=== PATIENT | female | born 1975 | race Asian ===

== ENCOUNTER → 2019-11-23 | Outpatient (CLI) | payer BC ==
[~2019-11-23] VITALS: Ht 30.5 cm; Wt 59.4 kg
[~2019-11-23] MED LIST: ALPR0.255 PO; CYANOCOBALAMIN (B-12) 1000 MCG/1 ML VIAL IM ONE; CYANOCOBALAMIN (B-12) 1000 MCG/1 ML VIAL ONE; DIGO0.25 PO; DIGOXIN (250MCG/ML) 2 ML AMPULE IV ONE; DIGOXIN (250MCG/ML) 2 ML AMPULE ONE; DILT-14 PO; FERR325T20 PO; GLYB5TAB8 PO; METF-372 PO; SODIUM CHLORIDE 0.9% 500 ML IV ONE; WARF4TAB33 PO; dilTIAZem 25 MG/5 ML VIAL IV ONE
[2019-11-23 16:25] VITALS: BP 128/78
--- NOTE | 2019-11-23 16:25 | NUR ---
Patient in clinic from MD callahan, AAOx4, ambulatory, breathing even and unlabored, patient fatigued. Dr Roman gave verbal orders as entered, patient into see Dr Roman regarding dizziness and fatigue, patient has nosebleeds and take coumadin for valve replacement.
--- NOTE | 2019-11-23 16:30 | NUR ---
IV insertion IV access obtained by David MARROQUIN, via clean sterile technique by inserting 20 gauge catheter at [facility] after 1 attempt(s). IV secured properly. No trauma to site. Patient tolerated procedure well. Blood drawn during IV start and sent to lab for STAT order.
--- NOTE | 2019-11-23 16:35 | NUR ---
Patient placed on cardiac defib monitor. IV fluids started.
--- NOTE | 2019-11-23 16:42 | NUR ---
Digoxin given as entered in eMAR by David MARROQUIN.
--- NOTE | 2019-11-23 16:47 | NUR ---
Digoxin push finished.
--- NOTE | 2019-11-23 16:50 | NUR ---
Cardizem IVP admin by David MARROQUIN as documented in eMAR.
--- NOTE | 2019-11-23 16:54 | NUR ---
Cardimiladym push finished.
--- NOTE | 2019-11-23 16:55 | NUR ---
Strip from monitor placed in pt chart.
[2019-11-23 17:04] LABS: Basophils # (auto) 0.1 10 ^3/uL (0-0.2); Basophils % (auto) 0.9 % (0.0-2.0); Eosinophils # (auto) 0.1 10 ^3/uL (0-0.8); Lymphocytes # (auto) 1.2 10 ^3/uL (0.4-5.4); Mean Corpuscular Hemoglobin 25.4 pg (28.0-32.0); Monocytes # (auto) 0.6 10 ^3/uL (0-1.3); Neutrophils # (auto) 4.3 10 ^3/uL (1.6-8.6); Nucleated Red Blood Cells % 0.1 %; White Blood Cell 6.3 10^3/uL (4.4-10.8)
[2019-11-23 17:06] LABS: Eosinophils % (auto) 1.3 % (0.0-7.0); Hematocrit 27.2 % (36.0-46.0); Hemoglobin 8.5 g/dL (12.2-16.2); Lymphocytes % (auto) 18.9 % (10.0-50.0); Mean Corpuscular Hgb Conc. 31.4 g/dL (32.0-36.0); Mean Corpuscular Volume 81.1 fL (80.0-100.0); Monocytes % (auto) 9.9 % (0.0-12.0); Platelet Count (auto) 290 10^3/uL (140-450); Red Blood Cells 3.36 10^6/uL (4.0-5.20); Red Cell Distribution Width 18.3 % (11.8-14.3)
[2019-11-23 17:19] LABS: Albumin 3.8 g/dL (3.4-5.0); Calcium 9.3 mg/dL (8.5-10.1); Magnesium 1.9 mg/dL (1.6-2.6); Potassium 4.4 mmol/L (3.5-5.1)
[2019-11-23 17:22] LABS: Bilirubin, Total 0.4 mg/dL (0.2-1.0); Total Protein 7.9 g/dL (6.4-8.2)
--- NOTE | 2019-11-23 17:30 | NUR ---
Patient heart rate decreased to 105-110 in Afib/Aflutter, Dr Roman notified.
--- NOTE | 2019-11-23 17:35 | NUR ---
Dr Roman at chairside talking with patient about new medications and diagnosis of Afib, new directions on Coumadin dose 4mg daily except Wednesday and Wednesday starting on Wednesday. Patient verbalized understanding.
--- NOTE | 2019-11-23 18:00 | NUR ---
B12 IM L deltoid admin by David MARROQUIN. Iron boost spray, with directions on how often to take, given to patient.
[2019-11-23 18:15] VITALS: BP 105/75
--- NOTE | 2019-11-23 18:15 | NUR ---
Discharge Instructions See e-MAR for any mediations given with this visit. Patient education given on disease process. Patient verbalized understanding. Previous labs reviewed. Patient discharged in stable condition with after care instructions and follow up appointment. Note Patient given triplicate prescription and David RN called in medications to patient preferred pharmacy. Patient has follow up appt on Wednesday with Dr Roman. Patient understands to go to the ER if her symptoms return or worsen.
--- NOTE | 2019-12-06 11:13 | NUR ---
11/23/19 1810 Late Entry IV NS Bolus completed. IV removal IV DC'd with sterile technique, catheter fully intact. Pressure dressing applied to site. Patient tolerated procedure well.
== END | disposition home or self-care (01) ==
LOC: CHF HDHVI 16:28
PROVIDERS: ATTEND Internal Medicine
DX: D64.9 Anemia, unspecified (principal); R55 Syncope and collapse; R04.0 Epistaxis; I48.91 Unspecified atrial fibrillation; I10 Essential (primary) hypertension; E11.9 Type 2 diabetes mellitus without complications; Z79.01 Long term (current) use of anticoagulants; Z79.84 Long term (current) use of oral hypoglycemic drugs; Z79.899 Other long term (current) drug therapy; Z95.2 Presence of prosthetic heart valve
CPT/HCPCS: 36415; 80053; 83036; 83735; 84443; 85025; 93005; 96361; 96372; 96374; 96375; G0463; J1160; J3420; J7040

== ENCOUNTER 2019-11-28 16:33 | Inpatient (IN) | payer BC ==
[2019-11-28] VITALS (7 sets, daily range): BP systolic 97–127; BP diastolic 63–89
[~2019-11-28] VITALS: Ht 152.4 cm; Wt 62.5 kg
[2019-11-28] MEDS ORDERED: dilTIAZem 25 MG/5 ML VIAL IV PRN (17:30)
[2019-11-28] MEDS ORDERED: DEXTROSE (50%) 50ML SYRG IV PRN (17:30)
[2019-11-28] MEDS ORDERED: AMIODARONE HCL 150 MG in D5W 5% 100 ML IV ONE (17:30)
[2019-11-28] MEDS ORDERED: ALPRAZolam 0.25 MG TAB PO PRN (17:30)
[2019-11-28] MEDS ORDERED: AMIODARONE 450mg/250ml AE 250 ML IV SCH (17:31)
[2019-11-28] MEDS ORDERED: GLYB5TAB8 PO (17:48)
[2019-11-28] MEDS ORDERED: DIGO0.25 PO (17:48)
[2019-11-28] MEDS ORDERED: METF-372 PO (17:48)
[2019-11-28] MEDS ORDERED: FERR325T20 PO (17:48)
[2019-11-28] MEDS ORDERED: ALPR0.255 PO (17:48)
[2019-11-28] MEDS ORDERED: WARF4TAB33 PO (17:48)
[2019-11-28] MEDS ORDERED: DILT-14 PO (17:48)
[2019-11-28] MEDS: SOD CHL 0.45% 1,000 ML IV SCH (18:49)
[2019-11-28 19:50] LABS: Basophils # (auto) 0.1 10 ^3/uL (0-0.2); Eosinophils # (auto) 0.1 10 ^3/uL (0-0.8); Mean Corpuscular Hgb Conc. 31.2 g/dL (32.0-36.0); Neutrophils # (auto) 3.6 10 ^3/uL (1.6-8.6); White Blood Cell 5.9 10^3/uL (4.4-10.8)
[2019-11-28 19:52] LABS: Basophils % (auto) 1.3 % (0.0-2.0); Eosinophils % (auto) 2.5 % (0.0-7.0); Hematocrit 20.3 % (36.0-46.0); Lymphocytes # (auto) 1.6 10 ^3/uL (0.4-5.4); Lymphocytes % (auto) 26.8 % (10.0-50.0); Mean Corpuscular Volume 83.2 fL (80.0-100.0); Monocytes # (auto) 0.5 10 ^3/uL (0-1.3); Monocytes % (auto) 9.1 % (0.0-12.0); Neutrophils % (auto) 60.3 % (37.0-80.0); Nucleated Red Blood Cells % 0.5 %; Platelet Count (auto) 349 10^3/uL (140-450); Red Blood Cells 2.44 10^6/uL (4.0-5.20); Red Cell Distribution Width 18.2 % (11.8-14.3)
[2019-11-28 19:59] LABS: Hemoglobin 6.3 g/dL (12.2-16.2)
[2019-11-28 20:07] LABS: Albumin 3.1 g/dL (3.4-5.0); Calcium 8.7 mg/dL (8.5-10.1); Potassium 4.7 mmol/L (3.5-5.1)
[2019-11-28 20:14] LABS: BUN/Creatinine Ratio 23.3; Bilirubin, Total 0.4 mg/dL (0.2-1.0); Total Protein 6.6 g/dL (6.4-8.2)
[2019-11-28 20:15] LABS: Free T4 (Free Thyroxine) 1.52 ng/dL (0.89-1.76); T3 Total 1.21 ng/mL (0.60-1.81)
[2019-11-28 20:25] LABS: INR 6.6 (0.9-1.15)
[2019-11-28] MEDS: ACCU-CHEK COMFORT CURVE STRIP VI SCH (21:52)
[2019-11-28] MEDS: InsuLIN REG 1unit/0.01ml Soln (100units/ml) SC SCH (21:57)
[2019-11-29] VITALS (12 sets, daily range): BP systolic 116–139; BP diastolic 66–82
[2019-11-29] MEDS: AMIODARONE 450mg/250ml AE 250 ML IV SCH ×3 (02:37→18:25)
[2019-11-29] MEDS: SOD CHL 0.45% 1,000 ML IV SCH ×2 (06:16→20:10)
[2019-11-29] MEDS: ACCU-CHEK COMFORT CURVE STRIP VI SCH ×4 (06:16→21:32)
[2019-11-29] MEDS: InsuLIN REG 1unit/0.01ml Soln (100units/ml) SC SCH ×4 (06:18→21:32)
[2019-11-29 06:39] LABS: Basophils # (auto) 0.1 10 ^3/uL (0-0.2); Eosinophils # (auto) 0.2 10 ^3/uL (0-0.8); Eosinophils % (auto) 3.1 % (0.0-7.0); Hematocrit 27.6 % (36.0-46.0); Hemoglobin 9.4 g/dL (12.2-16.2); Lymphocytes # (auto) 1.2 10 ^3/uL (0.4-5.4); Lymphocytes % (auto) 16.1 % (10.0-50.0); Mean Corpuscular Hemoglobin 28.5 pg (28.0-32.0); Mean Corpuscular Hgb Conc. 33.9 g/dL (32.0-36.0); Mean Corpuscular Volume 84.2 fL (80.0-100.0); Monocytes # (auto) 0.8 10 ^3/uL (0-1.3); Neutrophils % (auto) 68.8 % (37.0-80.0); Platelet Count (auto) 309 10^3/uL (140-450); Red Blood Cells 3.28 10^6/uL (4.0-5.20); Red Cell Distribution Width 16.7 % (11.8-14.3); White Blood Cell 7.2 10^3/uL (4.4-10.8)
[2019-11-29 07:01] LABS: Partial Thromboplastin Time 45.8 sec (23.0-31.2)
[2019-11-29 07:34] LABS: INR 4.9 (0.9-1.15)
[2019-11-29] MEDS ORDERED: CALCIUM CARB 500 MG CHEW TAB PO PRN (08:15)
[2019-11-29] MEDS ORDERED: PANTOPRAZOLE 40 MG TAB PO SCH (10:00)
[2019-11-29] MEDS ORDERED: DIGOXIN 0.25 MG TAB PO SCH (10:00)
[2019-11-29] MEDS ORDERED: PANTOPRAZOLE 40 MG/10 ML VIAL INJ IV SCH (10:00)
[2019-11-29] MEDS ORDERED: ALPRAZolam 0.25 MG TAB PO PRN (10:45)
[2019-11-29] MEDS ORDERED: FERROUS SULFATE 325 MG TAB PO ONE (11:00)
[2019-11-29] MEDS: SALINE 0.65 % NASAL SPRAY 45ML BOTTLE EACHNOSTRI SCH ×3 (11:37→21:29)
[2019-11-29 12:27] LABS: Urine Bacteria MOD /hpf (None Seen); Urine Blood 1+ /uL (Negative); Urine Specific Gravity 1.007 (1.001-1.035); Urine WBC 40 /hpf (0 - 5)
[2019-11-29] MEDS ORDERED: WARFARIN SODIUM 5 MG TAB PO SCH (17:00)
[2019-11-29] MEDS: FERROUS SULFATE 325 MG TAB PO SCH (17:41)
[2019-11-29] MEDS: AMIODARONE HCL 200 MG TAB PO SCH (21:29)
[2019-11-30 05:00] VITALS: BP 120/68
[2019-11-30] MEDS: InsuLIN REG 1unit/0.01ml Soln (100units/ml) SC SCH ×2 (06:22→12:10)
[2019-11-30] MEDS: SALINE 0.65 % NASAL SPRAY 45ML BOTTLE EACHNOSTRI SCH ×2 (06:22→12:08)
[2019-11-30] MEDS: ACCU-CHEK COMFORT CURVE STRIP VI SCH ×2 (06:22→12:08)
[2019-11-30 06:25] LABS: Potassium 3.9 mmol/L (3.5-5.1)
[2019-11-30 06:26] LABS: INR 2.26 (0.9-1.15); Partial Thromboplastin Time 35.4 sec (23.0-31.2)
[2019-11-30 06:29] LABS: Basophils # (auto) 0.1 10 ^3/uL (0-0.2); Basophils % (auto) 0.8 % (0.0-2.0); Eosinophils # (auto) 0.2 10 ^3/uL (0-0.8); Eosinophils % (auto) 2.8 % (0.0-7.0); Hematocrit 27.1 % (36.0-46.0); Hemoglobin 8.9 g/dL (12.2-16.2); Lymphocytes # (auto) 1.3 10 ^3/uL (0.4-5.4); Lymphocytes % (auto) 17.8 % (10.0-50.0); Mean Corpuscular Hemoglobin 27.9 pg (28.0-32.0); Mean Corpuscular Volume 84.6 fL (80.0-100.0); Monocytes # (auto) 0.8 10 ^3/uL (0-1.3); Monocytes % (auto) 11.1 % (0.0-12.0); Neutrophils # (auto) 4.9 10 ^3/uL (1.6-8.6); Neutrophils % (auto) 67.5 % (37.0-80.0); Nucleated Red Blood Cells % 0.3 %; Platelet Count (auto) 311 10^3/uL (140-450); Red Cell Distribution Width 17.3 % (11.8-14.3); White Blood Cell 7.3 10^3/uL (4.4-10.8)
[2019-11-30 06:31] LABS: Calcium 8.6 mg/dL (8.5-10.1)
[2019-11-30 09:00] VITALS: BP 133/66
[2019-11-30] MEDS: FERROUS SULFATE 325 MG TAB PO SCH (09:07)
[2019-11-30] MEDS: SOD CHL 0.45% 1,000 ML IV SCH (09:08)
[2019-11-30] MEDS: AMIODARONE HCL 200 MG TAB PO SCH (09:08)
[2019-11-30] MEDS ORDERED: DIGOXIN 0.125 MG TAB PO SCH (10:00)
[2019-11-30] MEDS ORDERED: PANTOPRAZOLE 40 MG TAB PO SCH (10:00)
[2019-11-30] MEDS ORDERED: cefTRIAXone 1GM/50ML D5W 50 ML IV ONE (10:00)
[2019-11-30 12:37] VITALS: BP 155/77
[2019-11-30 12:51] VITALS: BP_SYST 15; BP_SYST 155; BP_DIAS 77
[2019-11-30 14:00] VITALS: BP 131/60
[2019-11-30] MEDS ORDERED: WARFARIN SODIUM 2.5 MG TAB PO ONE (17:00)
== END 2019-11-30 14:20 | disposition home or self-care (01) | DRG 309 ==
LOC: TELE-CENTR 17:06
PROVIDERS: ADMIT Internal Medicine; ATTEND Internal Medicine
PROC: 30233N1 Transfusion of Nonautologous Red Blood Cells into Peripheral Vein, Percutaneous Approach (ICD-10-PCS; principal; 2019-11-28)
DX: I48.91 Unspecified atrial fibrillation (principal); D68.69 Other thrombophilia; N39.0 Urinary tract infection, site not specified; D64.9 Anemia, unspecified; E11.9 Type 2 diabetes mellitus without complications; R04.0 Epistaxis; I00 Rheumatic fever without heart involvement; H53.9 Unspecified visual disturbance; I10 Essential (primary) hypertension; I09.1 Rheumatic diseases of endocardium, valve unspecified; Z79.01 Long term (current) use of anticoagulants; Z79.899 Other long term (current) drug therapy; Z95.2 Presence of prosthetic heart valve; Z95.4 Presence of other heart-valve replacement; Z79.84 Long term (current) use of oral hypoglycemic drugs
CPT/HCPCS: 36415; 71045; 76536; 80048; 80053; 81001; 82962; 83036; 84439; 84443; 84480; 85025; 85610; 85730; 86850; 86900; 86901; 86920; 93306; C9113; G0378; J0696; J1815; J7060

== ENCOUNTER → 2019-12-05 | Outpatient (CLI) | payer BC ==
[~2019-12-05] MED LIST changes: -CYANOCOBALAMIN (B-12) 1000 MCG/1 ML VIAL IM ONE; -CYANOCOBALAMIN (B-12) 1000 MCG/1 ML VIAL ONE; -DIGOXIN (250MCG/ML) 2 ML AMPULE IV ONE; -DIGOXIN (250MCG/ML) 2 ML AMPULE ONE; -SODIUM CHLORIDE 0.9% 500 ML IV ONE; -dilTIAZem 25 MG/5 ML VIAL IV ONE
[2019-12-05 15:59] LABS: Basophils # (auto) 0.1 10 ^3/uL (0-0.2); Basophils % (auto) 1.2 % (0.0-2.0); Eosinophils # (auto) 0.2 10 ^3/uL (0-0.8); Eosinophils % (auto) 3.7 % (0.0-7.0); Hematocrit 32.5 % (36.0-46.0); Hemoglobin 10.2 g/dL (12.2-16.2); Lymphocytes # (auto) 0.8 10 ^3/uL (0.4-5.4); Mean Corpuscular Hemoglobin 27.4 pg (28.0-32.0); Mean Corpuscular Hgb Conc. 31.6 g/dL (32.0-36.0); Monocytes # (auto) 0.5 10 ^3/uL (0-1.3); Monocytes % (auto) 7.8 % (0.0-12.0); Neutrophils % (auto) 75.3 % (37.0-80.0); Platelet Count (auto) 378 10^3/uL (140-450); Red Blood Cells 3.73 10^6/uL (4.0-5.20); Red Cell Distribution Width 17.4 % (11.8-14.3); White Blood Cell 6.6 10^3/uL (4.4-10.8)
[2019-12-05 16:03] LABS: Albumin 3.4 g/dL (3.4-5.0); BUN/Creatinine Ratio 12.9; Potassium 4.6 mmol/L (3.5-5.1)
[2019-12-05 16:06] LABS: Bilirubin, Total 0.3 mg/dL (0.2-1.0); Total Protein 7.1 g/dL (6.4-8.2)
== END | disposition home or self-care (01) ==
LOC: LAB 11:43
PROVIDERS: ATTEND Internal Medicine
DX: I10 Essential (primary) hypertension (principal); R79.1 Abnormal coagulation profile; D64.9 Anemia, unspecified; E11.9 Type 2 diabetes mellitus without complications
CPT/HCPCS: 36415; 80053; 83036; 85025; 85610

== ENCOUNTER → 2019-12-11 | Outpatient (CLI) | payer BC ==
[2019-12-11 10:27] LABS: Basophils # (auto) 0.1 10 ^3/uL (0-0.2); Basophils % (auto) 2.2 % (0.0-2.0); Eosinophils # (auto) 0.2 10 ^3/uL (0-0.8); Eosinophils % (auto) 3.3 % (0.0-7.0); Hematocrit 35.2 % (36.0-46.0); Hemoglobin 11.3 g/dL (12.2-16.2); Lymphocytes # (auto) 1.3 10 ^3/uL (0.4-5.4); Mean Corpuscular Hgb Conc. 32.2 g/dL (32.0-36.0); Mean Corpuscular Volume 83.9 fL (80.0-100.0); Monocytes # (auto) 0.5 10 ^3/uL (0-1.3); Monocytes % (auto) 7.5 % (0.0-12.0); Neutrophils # (auto) 4.6 10 ^3/uL (1.6-8.6); Nucleated Red Blood Cells % 0.1 %; Platelet Count (auto) 353 10^3/uL (140-450); White Blood Cell 6.8 10^3/uL (4.4-10.8)
[2019-12-11 10:28] LABS: Urine Bacteria NONE SEEN /hpf (None Seen); Urine Blood 1+ /uL (Negative); Urine Specific Gravity 1.012 (1.001-1.035); Urine WBC 2 /hpf (0 - 5)
== END | disposition home or self-care (01) ==
LOC: LAB 09:59
PROVIDERS: ATTEND Internal Medicine
DX: I10 Essential (primary) hypertension (principal); E11.9 Type 2 diabetes mellitus without complications; D64.9 Anemia, unspecified
CPT/HCPCS: 36415; 81001; 82043; 85025; 85045

== ENCOUNTER → 2019-12-12 | Outpatient (CLI) | payer BC ==
[2019-12-12 12:18] LABS: INR 3.48 (0.9-1.15); Partial Thromboplastin Time 44.1 sec (23.0-31.2)
== END | disposition home or self-care (01) ==
LOC: LAB 09:14
PROVIDERS: ATTEND Internal Medicine
DX: R79.1 Abnormal coagulation profile (principal)
CPT/HCPCS: 36415; 85610; 85730

== ENCOUNTER → 2019-12-26 | Outpatient (CLI) | payer BC | END | disposition home or self-care (01) | LOC: LAB 09:47 | PROVIDERS: ATTEND Internal Medicine | DX: I10 Essential (primary) hypertension (principal); D64.9 Anemia, unspecified; E11.9 Type 2 diabetes mellitus without complications | CPT/HCPCS: 82270 ==

== ENCOUNTER → 2020-01-01 | Outpatient (CLI) | payer BC | END | disposition home or self-care (01) | LOC: LAB 10:33 | PROVIDERS: ATTEND Internal Medicine | DX: I47.1 Supraventricular tachycardia (principal) | CPT/HCPCS: 36415; 84443 ==

== ENCOUNTER → 2020-01-23 | Outpatient (CLI) | payer BC ==
[2020-01-23 10:06] LABS: Basophils # (auto) 0.1 10 ^3/uL (0-0.2); Basophils % (auto) 2.3 % (0.0-2.0); Eosinophils # (auto) 0.3 10 ^3/uL (0-0.8); Eosinophils % (auto) 7.4 % (0.0-7.0); Hematocrit 36.7 % (36.0-46.0); Hemoglobin 12.1 g/dL (12.2-16.2); Lymphocytes # (auto) 1.1 10 ^3/uL (0.4-5.4); Lymphocytes % (auto) 26.7 % (10.0-50.0); Mean Corpuscular Hemoglobin 27.6 pg (28.0-32.0); Mean Corpuscular Hgb Conc. 32.9 g/dL (32.0-36.0); Mean Corpuscular Volume 83.8 fL (80.0-100.0); Monocytes # (auto) 0.3 10 ^3/uL (0-1.3); Monocytes % (auto) 8.8 % (0.0-12.0); Neutrophils # (auto) 2.2 10 ^3/uL (1.6-8.6); Neutrophils % (auto) 54.8 % (37.0-80.0); Nucleated Red Blood Cells % 0.1 %; Platelet Count (auto) 229 10^3/uL (140-450); Red Blood Cells 4.38 10^6/uL (4.0-5.20); Red Cell Distribution Width 17.6 % (11.8-14.3)
[2020-01-23 10:33] LABS: BUN/Creatinine Ratio 22.5; Calcium 8.9 mg/dL (8.5-10.1); Potassium 4.3 mmol/L (3.5-5.1)
== END | disposition home or self-care (01) ==
LOC: LAB 09:34
PROVIDERS: ATTEND Internal Medicine
DX: I10 Essential (primary) hypertension (principal); D64.9 Anemia, unspecified
CPT/HCPCS: 36415; 80048; 83036; 85025

== ENCOUNTER → 2020-03-12 | Outpatient (CLI) | payer BC ==
[2020-03-12 10:35] LABS: Potassium 4.8 mmol/L (3.5-5.1)
[2020-03-12 10:38] LABS: BUN/Creatinine Ratio 23.4; Calcium 8.8 mg/dL (8.5-10.1)
== END | disposition home or self-care (01) ==
LOC: LAB 09:20
PROVIDERS: ATTEND Internal Medicine
DX: E11.9 Type 2 diabetes mellitus without complications (principal); D64.9 Anemia, unspecified
CPT/HCPCS: 36415; 80048

== ENCOUNTER 2020-08-06 10:45 | Emergency (ER) | payer BC ==
[~2020-08-06] VITALS: Ht 152.4 cm; Wt 63.5 kg
[2020-08-06 10:50] VITALS: BP 188/83
[2020-08-06 11:19] LABS: Basophils # (auto) 0.1 10 ^3/uL (0-0.2); Basophils % (auto) 1.3 % (0.0-2.0); Eosinophils # (auto) 0.2 10 ^3/uL (0-0.8); Eosinophils % (auto) 3.5 % (0.0-7.0); Hematocrit 34.7 % (36.0-46.0); Hemoglobin 11.6 g/dL (12.2-16.2); Lymphocytes # (auto) 1.4 10 ^3/uL (0.4-5.4); Lymphocytes % (auto) 20.5 % (10.0-50.0); Mean Corpuscular Hemoglobin 28.9 pg (28.0-32.0); Mean Corpuscular Hgb Conc. 33.5 g/dL (32.0-36.0); Mean Corpuscular Volume 86.3 fL (80.0-100.0); Monocytes # (auto) 0.4 10 ^3/uL (0-1.3); Monocytes % (auto) 6.1 % (0.0-12.0); Neutrophils # (auto) 4.6 10 ^3/uL (1.6-8.6); Neutrophils % (auto) 68.6 % (37.0-80.0); Nucleated Red Blood Cells % 0.1 %; Platelet Count (auto) 281 10^3/uL (140-450); Red Blood Cells 4.02 10^6/uL (4.0-5.20); Red Cell Distribution Width 15.5 % (11.8-14.3); White Blood Cell 6.7 10^3/uL (4.4-10.8)
[2020-08-06 11:39] LABS: INR 3.5 (0.9-1.15); Partial Thromboplastin Time 49.1 sec (23.0-31.2)
== END 2020-08-06 13:17 | disposition home or self-care (01) ==
LOC: ER 10:45
DX: R04.0 Epistaxis (principal); I25.10 Atherosclerotic heart disease of native coronary artery without angina pectoris; E11.9 Type 2 diabetes mellitus without complications; I10 Essential (primary) hypertension; Z79.01 Long term (current) use of anticoagulants; Z79.899 Other long term (current) drug therapy
CPT/HCPCS: 36415; 85025; 85610; 85730

== ENCOUNTER 2020-09-12 18:40 | Inpatient (IN) | payer BC ==
[~2020-09-12] VITALS: Ht 152.4 cm; Wt 63.5 kg
[2020-09-12 19:33] LABS: Basophils # (auto) 0.1 10 ^3/uL (0-0.2); Basophils % (auto) 2.5 % (0.0-2.0); Eosinophils # (auto) 0.4 10 ^3/uL (0-0.8); Eosinophils % (auto) 7.2 % (0.0-7.0); Hemoglobin 10.7 g/dL (12.2-16.2); Lymphocytes # (auto) 1.2 10 ^3/uL (0.4-5.4); Lymphocytes % (auto) 24.5 % (10.0-50.0); Mean Corpuscular Hemoglobin 30.1 pg (28.0-32.0); Mean Corpuscular Hgb Conc. 34.4 g/dL (32.0-36.0); Mean Corpuscular Volume 87.6 fL (80.0-100.0); Monocytes # (auto) 0.5 10 ^3/uL (0-1.3); Monocytes % (auto) 9.8 % (0.0-12.0); Neutrophils # (auto) 2.8 10 ^3/uL (1.6-8.6); Red Blood Cells 3.54 10^6/uL (4.0-5.20); Red Cell Distribution Width 14.5 % (11.8-14.3); White Blood Cell 4.9 10^3/uL (4.4-10.8)
[2020-09-12 19:49] LABS: Albumin 3.3 g/dL (3.4-5.0); Anion Gap 4 (5-15); Blood Urea Nitrogen 22 mg/dL (7-18); Calcium 8.4 mg/dL (8.5-10.1); Carbon Dioxide 26 mmol/L (21-32); Chloride 112 mmol/L (98-107); Glucose 272 mg/dL (74-106); Sodium 142 mmol/L (136-145)
[2020-09-12 19:56] LABS: Alanine Aminotransferase 49 U/L (13-56); Alkaline Phosphatase 60 U/L (45-117); Aspartate Aminotransferase 30 U/L (15-37); BUN/Creatinine Ratio 19.8; Bilirubin, Total 0.2 mg/dL (0.2-1.0); GFR African American 69 mL/min; GFR Non-African American 57 mL/min; Total Protein 6.7 g/dL (6.4-8.2)
[2020-09-12] MEDS ORDERED: cloNIDine HCL 0.1 MG TAB PO ONE (20:15)
[2020-09-12] MEDS ORDERED: ONDANSETRON HCL 4 MG/2 ML VIAL IV PRN (23:00)
[2020-09-12] MEDS ORDERED: MORPHINE SULFATE 4 MG/ML SYR/VIAL IV PRN (23:00)
[2020-09-12] MEDS ORDERED: MORPHINE SULF INJ 2 MG/ML SYRINGE 1ML IV PRN (23:00)
[2020-09-12] MEDS ORDERED: DOCUSATE SOD 100 MG CAP PO PRN (23:00)
[2020-09-12] MEDS ORDERED: DEXTROSE (50%) 50ML SYRG IV PRN (23:00)
[2020-09-12] MEDS ORDERED: NITROGLYCERIN 0.4 MG SL TAB SL PRN (23:00)
[2020-09-12] MEDS ORDERED: HYDROcodone-ACET 5/325MG TAB PO PRN (23:00)
[2020-09-13] VITALS (7 sets, daily range): BP systolic 124–172; BP diastolic 53–82
[2020-09-13] MEDS: SODIUM CHLOR 0.9% PF (SALINE LOCK) 10ML VIAL/SYR IV SCH ×3 (05:02→21:45)
[2020-09-13] MEDS: hydrALAZINE HCL 20 MG/ML VL IV PRN ×2 (05:02→17:48)
[2020-09-13] MEDS: InsuLIN REG 1unit/0.01ml Soln (100units/ml) SC SCH ×4 (06:37→22:07)
[2020-09-13] MEDS: ACCU-CHEK COMFORT CURVE STRIP VI SCH ×4 (06:37→21:44)
[2020-09-13 07:49] LABS: Basophils # (auto) 0.1 10 ^3/uL (0-0.2); Basophils % (auto) 1.3 % (0.0-2.0); Eosinophils # (auto) 0.3 10 ^3/uL (0-0.8); Hematocrit 31.7 % (36.0-46.0); Hemoglobin 10.8 g/dL (12.2-16.2); Lymphocytes % (auto) 18.8 % (10.0-50.0); Mean Corpuscular Hemoglobin 29.8 pg (28.0-32.0); Mean Corpuscular Hgb Conc. 34.2 g/dL (32.0-36.0); Monocytes # (auto) 0.4 10 ^3/uL (0-1.3); Neutrophils # (auto) 3.7 10 ^3/uL (1.6-8.6); Neutrophils % (auto) 66.9 % (37.0-80.0); Nucleated Red Blood Cells % 0.1 %; Red Blood Cells 3.64 10^6/uL (4.0-5.20); Red Cell Distribution Width 14.9 % (11.8-14.3); White Blood Cell 5.6 10^3/uL (4.4-10.8)
[2020-09-13 08:03] LABS: Calcium 8.7 mg/dL (8.5-10.1); Potassium 4.6 mmol/L (3.5-5.1)
[2020-09-13 08:08] LABS: Bilirubin, Total 0.3 mg/dL (0.2-1.0); Total Protein 6.5 g/dL (6.4-8.2)
[2020-09-13] MEDS: FAMOTIDINE 20 MG TAB PO SCH ×2 (09:58→21:51)
[2020-09-13] MEDS: ZINC SULFATE 220mg CAP or TAB PO SCH (09:58)
[2020-09-13] MEDS: amLODIPine BESYLATE 5 MG TAB PO SCH (09:59)
[2020-09-13] MEDS ORDERED: ENOXAPARIN SOD 40 MG/0.4 ML SYRINGE SC SCH (10:00)
[2020-09-13] MEDS ORDERED: ASCORBIC ACID 500 MG TAB PO SCH (10:00)
[2020-09-13 12:37] LABS: INR 2.56 (0.9-1.15); Partial Thromboplastin Time 50.4 sec (23.0-31.2)
[2020-09-13] MEDS: ACETAMINOPHEN 325 MG TAB PO PRN (13:41)
[2020-09-13 14:28] LABS: Urine Bacteria NONE SEEN /hpf (None Seen); Urine Blood 1+ /uL (Negative); Urine Specific Gravity 1.011 (1.001-1.035); Urine WBC 3 /hpf (0 - 5)
[2020-09-13] MEDS ORDERED: WARFARIN SODIUM 1 MG TAB PO ONE (17:00)
[2020-09-13] MEDS ORDERED: LORazepam 2MG/ML-1ML VIAL IV PRN (20:45)
[2020-09-14] MEDS ORDERED: WARF4TAB33 PO (00:04)
[2020-09-14] MEDS ORDERED: GLYB5TAB8 PO (00:04)
[2020-09-14] MEDS ORDERED: POM PO (00:10)
[2020-09-14] MEDS ORDERED: MET50T PO (00:10)
[2020-09-14] MEDS ORDERED: AMIO200T33 PO (00:10)
[2020-09-14] MEDS ORDERED: ATO40T PO (00:10)
[2020-09-14] MEDS ORDERED: LISI2.5T47 PO (00:10)
[2020-09-14 05:00] VITALS: BP 135/65
[2020-09-14] MEDS: ACCU-CHEK COMFORT CURVE STRIP VI SCH ×4 (06:10→22:10)
[2020-09-14] MEDS: SODIUM CHLOR 0.9% PF (SALINE LOCK) 10ML VIAL/SYR IV SCH ×3 (06:10→22:10)
[2020-09-14 06:34] LABS: Basophils # (auto) 0.1 10 ^3/uL (0-0.2); Basophils % (auto) 1.4 % (0.0-2.0); Eosinophils # (auto) 0.4 10 ^3/uL (0-0.8); Eosinophils % (auto) 6.6 % (0.0-7.0); Hematocrit 34.6 % (36.0-46.0); Hemoglobin 11.9 g/dL (12.2-16.2); Lymphocytes # (auto) 1.1 10 ^3/uL (0.4-5.4); Lymphocytes % (auto) 17.4 % (10.0-50.0); Mean Corpuscular Hgb Conc. 34.3 g/dL (32.0-36.0); Mean Corpuscular Volume 87.5 fL (80.0-100.0); Monocytes # (auto) 0.4 10 ^3/uL (0-1.3); Monocytes % (auto) 7.2 % (0.0-12.0); Neutrophils # (auto) 4.1 10 ^3/uL (1.6-8.6); Neutrophils % (auto) 67.4 % (37.0-80.0); Nucleated Red Blood Cells % 0.1 %; Red Blood Cells 3.96 10^6/uL (4.0-5.20); Red Cell Distribution Width 14.7 % (11.8-14.3); White Blood Cell 6.1 10^3/uL (4.4-10.8)
[2020-09-14] MEDS: InsuLIN REG 1unit/0.01ml Soln (100units/ml) SC SCH ×4 (06:37→22:14)
[2020-09-14] MEDS: ACETAMINOPHEN 325 MG TAB PO PRN (06:42)
[2020-09-14 06:54] LABS: Calcium 9.2 mg/dL (8.5-10.1); INR 1.79 (0.9-1.15); Potassium 4.9 mmol/L (3.5-5.1)
[2020-09-14 09:18] VITALS: BP 155/70
[2020-09-14] MEDS: AMIODARONE HCL 200 MG TAB PO SCH (10:15)
[2020-09-14] MEDS: FAMOTIDINE 20 MG TAB PO SCH ×2 (10:15→21:55)
[2020-09-14] MEDS: ZINC SULFATE 220mg CAP or TAB PO SCH (10:15)
[2020-09-14] MEDS: amLODIPine BESYLATE 5 MG TAB PO SCH (10:15)
[2020-09-14 11:38] LABS: BUN/Creatinine Ratio 29.1
[2020-09-14 13:20] VITALS: BP 135/66
[2020-09-14 17:00] VITALS: BP 146/78
[2020-09-14] MEDS ORDERED: WARFARIN SODIUM 2.5 MG TAB PO ONE (17:00)
[2020-09-14 22:00] VITALS: BP 130/78
[2020-09-15 05:11] VITALS: BP 129/67
[2020-09-15] MEDS: ACCU-CHEK COMFORT CURVE STRIP VI SCH ×4 (06:24→21:06)
[2020-09-15] MEDS: SODIUM CHLOR 0.9% PF (SALINE LOCK) 10ML VIAL/SYR IV SCH ×3 (06:24→21:06)
[2020-09-15] MEDS: InsuLIN REG 1unit/0.01ml Soln (100units/ml) SC SCH ×4 (06:27→21:04)
[2020-09-15 06:59] LABS: Basophils # (auto) 0.1 10 ^3/uL (0-0.2); Basophils % (auto) 1.4 % (0.0-2.0); Eosinophils # (auto) 0.3 10 ^3/uL (0-0.8); Eosinophils % (auto) 4.9 % (0.0-7.0); Hematocrit 35.3 % (36.0-46.0); Lymphocytes # (auto) 1.2 10 ^3/uL (0.4-5.4); Lymphocytes % (auto) 18.9 % (10.0-50.0); Mean Corpuscular Hemoglobin 29.7 pg (28.0-32.0); Mean Corpuscular Hgb Conc. 34.1 g/dL (32.0-36.0); Mean Corpuscular Volume 87.4 fL (80.0-100.0); Monocytes # (auto) 0.5 10 ^3/uL (0-1.3); Monocytes % (auto) 8.1 % (0.0-12.0); Neutrophils # (auto) 4.3 10 ^3/uL (1.6-8.6); Neutrophils % (auto) 66.7 % (37.0-80.0); Red Blood Cells 4.04 10^6/uL (4.0-5.20); Red Cell Distribution Width 14.6 % (11.8-14.3); White Blood Cell 6.4 10^3/uL (4.4-10.8)
[2020-09-15 07:15] LABS: INR 1.38 (0.9-1.15)
[2020-09-15 07:16] LABS: BUN/Creatinine Ratio 27.6; Calcium 9.2 mg/dL (8.5-10.1); Potassium 4.8 mmol/L (3.5-5.1)
[2020-09-15 09:00] VITALS: BP 147/71
[2020-09-15] MEDS: FAMOTIDINE 20 MG TAB PO SCH ×2 (09:39→21:06)
[2020-09-15] MEDS: ZINC SULFATE 220mg CAP or TAB PO SCH (09:39)
[2020-09-15] MEDS: AMIODARONE HCL 200 MG TAB PO SCH (09:39)
[2020-09-15] MEDS: amLODIPine BESYLATE 5 MG TAB PO SCH (09:40)
[2020-09-15 13:00] VITALS: BP 142/73
[2020-09-15] MEDS: HYDROCORTONE 1% TOPICAL CREAM 30 GM TUBE TOP SCH ×2 (16:22→21:06)
[2020-09-15] MEDS ORDERED: WARFARIN SODIUM 5 MG TAB PO ONE (17:00)
[2020-09-15 22:02] VITALS: BP 147/83
[2020-09-16] MEDS: hydrALAZINE HCL 20 MG/ML VL IV PRN (04:40)
[2020-09-16 04:47] VITALS: BP 156/84
[2020-09-16] MEDS: SODIUM CHLOR 0.9% PF (SALINE LOCK) 10ML VIAL/SYR IV SCH ×3 (06:26→20:46)
[2020-09-16] MEDS: ACCU-CHEK COMFORT CURVE STRIP VI SCH ×4 (06:31→20:37)
[2020-09-16] MEDS: InsuLIN REG 1unit/0.01ml Soln (100units/ml) SC SCH ×4 (06:31→20:40)
[2020-09-16 06:43] VITALS: BP 150/72
[2020-09-16 06:51] LABS: Basophils # (auto) 0.1 10 ^3/uL (0-0.2); Basophils % (auto) 1.4 % (0.0-2.0); Eosinophils # (auto) 0.3 10 ^3/uL (0-0.8); Eosinophils % (auto) 3.8 % (0.0-7.0); Hematocrit 34.2 % (36.0-46.0); Hemoglobin 11.6 g/dL (12.2-16.2); Lymphocytes % (auto) 11.8 % (10.0-50.0); Mean Corpuscular Hemoglobin 29.3 pg (28.0-32.0); Mean Corpuscular Volume 86.2 fL (80.0-100.0); Monocytes # (auto) 0.8 10 ^3/uL (0-1.3); Monocytes % (auto) 10.2 % (0.0-12.0); Neutrophils # (auto) 5.9 10 ^3/uL (1.6-8.6); Neutrophils % (auto) 72.8 % (37.0-80.0); Red Blood Cells 3.96 10^6/uL (4.0-5.20); Red Cell Distribution Width 14.9 % (11.8-14.3); White Blood Cell 8.1 10^3/uL (4.4-10.8)
[2020-09-16 07:01] LABS: Calcium 8.7 mg/dL (8.5-10.1); Potassium 4.9 mmol/L (3.5-5.1)
[2020-09-16 07:04] LABS: BUN/Creatinine Ratio 29.5
[2020-09-16 07:08] LABS: INR 1.65 (0.9-1.15); Partial Thromboplastin Time 36.1 sec (23.0-31.2)
[2020-09-16] MEDS ORDERED: hydrALAZINE HCL 20 MG/ML VL IV ONE (08:15)
[2020-09-16] MEDS ORDERED: LIDOCAINE VISCOUS 2% 15ML UD MT ONE (09:00)
[2020-09-16] MEDS ORDERED: fentaNYL CITRATE 100 MCG/2 ML VL IV ONE (09:00)
[2020-09-16] MEDS ORDERED: MIDAZOLAM HCL 5 MG/ML-1ML VIAL IV ONE (09:00)
[2020-09-16 09:38] VITALS: BP 162/76
[2020-09-16] MEDS ORDERED: MIDAZOLAM HCL 1MG/1ML-2 ML VIAL ONE (09:50)
[2020-09-16 12:55] VITALS: BP 111/68
[2020-09-16] MEDS: HYDROCORTONE 1% TOPICAL CREAM 30 GM TUBE TOP SCH ×2 (13:04→20:37)
[2020-09-16] MEDS: FAMOTIDINE 20 MG TAB PO SCH ×2 (13:07→20:37)
[2020-09-16] MEDS: AMIODARONE HCL 200 MG TAB PO SCH (13:07)
[2020-09-16] MEDS: amLODIPine BESYLATE 5 MG TAB PO SCH (13:08)
[2020-09-16] MEDS: ACETAMINOPHEN 325 MG TAB PO PRN (14:37)
[2020-09-16] MEDS ORDERED: WARFARIN SODIUM 5 MG TAB PO ONE (17:00)
[2020-09-16 17:18] VITALS: BP 120/84
[2020-09-16 22:00] VITALS: BP 141/71
[2020-09-17 05:00] VITALS: BP 141/73
[2020-09-17] MEDS: ACCU-CHEK COMFORT CURVE STRIP VI SCH ×2 (06:10→11:45)
[2020-09-17] MEDS: SODIUM CHLOR 0.9% PF (SALINE LOCK) 10ML VIAL/SYR IV SCH (06:10)
[2020-09-17] MEDS: InsuLIN REG 1unit/0.01ml Soln (100units/ml) SC SCH ×2 (06:22→11:48)
[2020-09-17 07:58] LABS: Basophils # (auto) 0.1 10 ^3/uL (0-0.2); Eosinophils # (auto) 0.2 10 ^3/uL (0-0.8); Eosinophils % (auto) 2.1 % (0.0-7.0); Hematocrit 35.8 % (36.0-46.0); Hemoglobin 11.9 g/dL (12.2-16.2); Lymphocytes # (auto) 1.1 10 ^3/uL (0.4-5.4); Mean Corpuscular Hgb Conc. 33.2 g/dL (32.0-36.0); Mean Corpuscular Volume 87.4 fL (80.0-100.0); Monocytes # (auto) 0.7 10 ^3/uL (0-1.3); Monocytes % (auto) 9.2 % (0.0-12.0); Neutrophils % (auto) 73.7 % (37.0-80.0); Nucleated Red Blood Cells % 0.1 %; Red Blood Cells 4.09 10^6/uL (4.0-5.20); Red Cell Distribution Width 14.8 % (11.8-14.3); White Blood Cell 8.1 10^3/uL (4.4-10.8)
[2020-09-17 08:20] LABS: INR 2.57 (0.9-1.15)
[2020-09-17 08:30] VITALS: BP 161/73
[2020-09-17 08:31] LABS: Albumin 3.3 g/dL (3.4-5.0)
[2020-09-17] MEDS: FAMOTIDINE 20 MG TAB PO SCH (10:17)
[2020-09-17] MEDS: amLODIPine BESYLATE 5 MG TAB PO SCH (10:17)
[2020-09-17] MEDS: AMIODARONE HCL 200 MG TAB PO SCH (10:18)
[2020-09-17] MEDS: HYDROCORTONE 1% TOPICAL CREAM 30 GM TUBE TOP SCH (10:19)
== END 2020-09-17 12:40 | disposition home or self-care (01) | DRG 305 ==
LOC: ER 18:40 → TELE 22:49 → TELE-CENTR 23:45
PROVIDERS: ADMIT Nurse Practitioner Family; ATTEND Internal Medicine
PROC: B24BZZ4 Ultrasonography of Heart with Aorta, Transesophageal (ICD-10-PCS; principal; 2020-09-16)
DX: I16.0 Hypertensive urgency (principal); D68.69 Other thrombophilia; E11.21 Type 2 diabetes mellitus with diabetic nephropathy; E11.65 Type 2 diabetes mellitus with hyperglycemia; F17.200 Nicotine dependence, unspecified, uncomplicated; I09.9 Rheumatic heart disease, unspecified; I10 Essential (primary) hypertension; I25.10 Atherosclerotic heart disease of native coronary artery without angina pectoris; I48.91 Unspecified atrial fibrillation; I25.2 Old myocardial infarction; N28.9 Disorder of kidney and ureter, unspecified; Z20.822 Contact with and (suspected) exposure to COVID-19; D64.9 Anemia, unspecified; Z83.3 Family history of diabetes mellitus; Z86.73 Personal history of transient ischemic attack (TIA), and cerebral infarction without residual deficits; Z95.1 Presence of aortocoronary bypass graft; Z95.3 Presence of xenogenic heart valve; M79.605 Pain in left leg; M79.604 Pain in right leg; Z79.01 Long term (current) use of anticoagulants; Z79.899 Other long term (current) drug therapy
CPT/HCPCS: 36415; 70551; 71046; 80048; 80053; 80061; 81001; 81025; 82040; 82565; 82962; 83036; 83735; 83880; 84443; 84484; 85025; 85049; 85610; 85730; 86850; 86900; 86901; 87040; 87426; 93005; 93306; 93312; 95819; 99152; G0378; J1815; J2250; J2405

== ENCOUNTER → 2020-09-27 | Outpatient (CLI) | payer BC ==
[~2020-09-27] MED LIST changes: +AMIO200T33 PO; +ATO40T PO; +LISI2.5T47 PO; +MET50T PO; +POM PO
[2020-09-27 11:42] LABS: Follicle Stimulating Hormone 116.24 IU/L (SEE BELOW); Leuteinizing Hormone 58.8 IU/L
== END | disposition home or self-care (01) ==
LOC: LAB 09:24
PROVIDERS: ATTEND Internal Medicine
DX: E11.9 Type 2 diabetes mellitus without complications (principal); I10 Essential (primary) hypertension
CPT/HCPCS: 36415; 82672; 83001; 83002; 84144; 84403; 84443

== ENCOUNTER → 2020-10-18 | Outpatient (CLI) | payer BC | END | disposition home or self-care (01) | LOC: LAB 09:22 | PROVIDERS: ATTEND Internal Medicine | DX: E03.9 Hypothyroidism, unspecified (principal) | CPT/HCPCS: 36415; 84443 ==